=== PATIENT | female | born 1935 | race Caucasian/White ===

== ENCOUNTER 2021-08-17 23:43 | Emergency (ER) | payer MEDICARE, BC | END 2021-08-18 00:31 | disposition home or self-care (01) | LOC: CSHERS 23:43 | DX: R00.1 Bradycardia, unspecified (principal); I44.7 Left bundle-branch block, unspecified; I11.0 Hypertensive heart disease with heart failure; I50.9 Heart failure, unspecified; I48.91 Unspecified atrial fibrillation; E78.5 Hyperlipidemia, unspecified; E03.9 Hypothyroidism, unspecified; Z95.0 Presence of cardiac pacemaker; Z79.899 Other long term (current) drug therapy | CPT/HCPCS: 93005 ==